=== PATIENT | female | born 1935 | race Caucasian/White ===

== ENCOUNTER 2021-10-25 09:28 | Outpatient (REF) | payer MEDICARE, SELFPAY ==
[2021-10-25 10:30] LABS: Anion Gap 10 (12-20); Blood Urea Nitrogen 15 mg/dL (9-16); Calcium 9.7 mg/dL (8.4-10.2); Carbon Dioxide 32 mmol/L (22-29); Chloride 104 mmol/L (96-108); Estimated Glomerular Filt Rate > 60; Glucose Random 105 mg/dL (60-115); Sodium 142 mmol/L (135-145)
[2021-10-25 10:54] LABS: T4 Thyroxine 7.4 ug/dL (4.5-12.0); Thyroid Stimulating Hormone 0.68 uIU/mL (0.32-4.0)
[2021-10-25 11:14] LABS: Folate 10.2 ng/mL (> or = 4.0); Vitamin B12 602 pg/mL (200-900)
== END 2021-10-25 09:29 | disposition home or self-care (01) ==
LOC: HO.LAB 09:28
PROVIDERS: PCP Internal Medicine; Visit Provider Psychiatry & Neurology Neurology
DX: G30.9 Alzheimer's disease, unspecified (principal)
CPT/HCPCS: 36415; 80048; 82607; 82746; 84436; 84443

== ENCOUNTER 2021-11-04 14:55 | Outpatient (REF) | payer MEDICARE, SELFPAY ==
--- NOTE | ~2021-11-04 | CT_ITS ---
EXAMINATION: CT HEAD WITHOUT CONTRAST CLINICAL INFORMATION: Alzheimer's disease. COMPARISON: None TECHNIQUE: Contiguous axial imaging was performed from the skull base to vertex without intravenous administration of contrast. This CT examination was performed using dose optimization techniques as appropriate, variously including the following: *Automated exposure control *Adjustment of mA and/or kV according to patient size (this includes techniques or standardized protocols for targeted exams where dose is matched to indication/reason for exam; i.e. extremities or head) *Use of iterative reconstruction technique DLP: 660 mGy-cm FINDINGS: There is no evidence of acute intracranial hemorrhage or territorial infarction. No abnormal mass effect or midline shift is seen. No extra-axial fluid collections are identified. There is diffuse parenchymal volume loss with concordant ex vacuo prominence of the ventricular system. Extensive confluent areas of low-density change are present throughout the cerebral white matter of both hemispheres. The osseous structures and soft tissues are normal. Significant atherosclerotic wall calcifications of the vertebral arteries visible. The mastoid air cells and visualized portions of the paranasal sinuses are well aerated. CT/CT head/brain wo con IMPRESSION: No acute intracranial hemorrhage or territorial infarction. Extensive chronic white matter microangiopathy and diffuse parenchymal volume loss.
== END 2021-11-04 14:56 | disposition home or self-care (01) ==
LOC: HO.CT 14:55
PROVIDERS: Visit Provider Psychiatry & Neurology Neurology
DX: G30.9 Alzheimer's disease, unspecified (principal)
CPT/HCPCS: 70450